=== PATIENT | male | born 1985 | race Hispanic/Latino ===

== ENCOUNTER 2019-09-18 01:55 | Emergency (ER) | payer OTHER ==
[2019-09-18] MEDS ORDERED: Lidocaine 1% w/Epinephrine 1:100K 20 ML VIAL ONE (02:13)
[2019-09-18] MEDS ORDERED: Lidocaine 1% PF 5 ML VIAL ONE ×2 (02:15)
[2019-09-18] MEDS ORDERED: Adacel (T-DAP) 0.5 ML SYRINGE ONE (02:26)
[2019-09-18] MEDS ORDERED: Bacitracin 1 PK ONE (02:42)
== END 2019-09-18 02:53 | disposition home or self-care (01) ==
LOC: BURERS 01:55
DX: S51.812A Laceration without foreign body of left forearm, initial encounter (principal); Z23 Encounter for immunization; W26.9XXA Contact with unspecified sharp object(s), initial encounter; Y99.0 Civilian activity done for income or pay
CPT/HCPCS: 12002; 90471; 90715